=== PATIENT | male | born 1930 | race Caucasian/White ===

== ENCOUNTER 2016-07-13 17:28 | Emergency (ER) | payer MEDICARE, BC ==
[~2016-07-13] VITALS: Ht 175.3 cm; Wt 95.3 kg
== END 2016-07-13 19:09 | disposition left against medical advice (07) ==
LOC: M ED 17:47
DX: R06.02 Shortness of breath (principal); Z53.21 Procedure and treatment not carried out due to patient leaving prior to being seen by health care provider